=== PATIENT | female | born 1990 | race African-American/Black ===

== ENCOUNTER 2016-11-09 12:43 | Inpatient (IN) | payer BC ==
[~2016-11-09] VITALS: Ht 162.6 cm; Wt 74.5 kg
[2016-11-09] MEDS ORDERED: OXYTOCIN 30U/ 0.9% NaCL 500ML 500 ML IV ONE (12:46)
[2016-11-09] MEDS ORDERED: D5%-LACTATED RINGERS 1,000 ML IV SCH (12:46)
[2016-11-09] MEDS ORDERED: LACTATED RINGERS 1,000 ML IV SCH (12:46)
[2016-11-09] MEDS ORDERED: METOCLOPRAMIDE 5 MG/ML, 2ML IVPush PRN (13:00)
[2016-11-09] MEDS ORDERED: ONDANSETRON 2MG/ML, 2ML IVPush PRN (13:00)
[2016-11-09] MEDS ORDERED: SODIUM CITRATE/CITRIC ACID 30 ML UDC PO PRN (13:00)
[2016-11-09] MEDS ORDERED: FENTANYL PF 100 MCG/2ML IV PRN (13:00)
[2016-11-09] MEDS ORDERED: FENTANYL PF 100 MCG/2ML IVPush PRN (13:00)
[2016-11-09] MEDS ORDERED: OXYTOCIN 30U/ 0.9% NaCL 500ML 500 ML ONE (13:36)
[2016-11-09 13:39] LABS: ASPARTATE AMINO TRANSFERASE 37 U/L (15-37); BLOOD UREA NITROGEN 13 mg/dL (7-18)
[2016-11-09] MEDS ORDERED: METOCLOPRAMIDE 5 MG/ML, 2ML ONE ×2 (14:53→15:13)
[2016-11-09] MEDS ORDERED: SODIUM CITRATE/CITRIC ACID 30 ML UDC ONE (14:53)
[2016-11-09] MEDS ORDERED: FENTANYL PF 100 MCG/2ML ONE (14:56)
[2016-11-09] MEDS ORDERED: NEWBORN KIT ONE (15:00)
[2016-11-09] MEDS ORDERED: TERBUTALINE 1 MG/ML, 1ML ONE (15:01)
[2016-11-09] MEDS ORDERED: OXYTOCIN 10 UNITS/ML, 1ML ONE (15:13)
[2016-11-09] MEDS ORDERED: DEXAMETHASONE 4 MG/ML, 1ML ONE (15:13)
[2016-11-09] MEDS ORDERED: ONDANSETRON 2MG/ML, 2ML ONE (15:13)
[2016-11-09] MEDS ORDERED: KETOROLAC 30 MG/1 ML ONE (15:13)
[2016-11-09] MEDS ORDERED: TERBUTALINE 1 MG/ML, 1ML SQ PRN (15:30)
[2016-11-09 16:56] VITALS: BP 98/48
[2016-11-09] MEDS ORDERED: DIPH,PERTUSS(ACELL),TET VAC/PF NC IM-VACC PRN (17:00)
[2016-11-09] MEDS ORDERED: BISACODYL 10 MG SUPP PR PRN (17:00)
[2016-11-09] MEDS ORDERED: IBUPROFEN 600 MG TABLET PO PRN (17:00)
[2016-11-09] MEDS ORDERED: MEASLES,MUMPS&RUBELLA VACC/PF 0.5 ML SQ-VACC PRN (17:00)
[2016-11-09] MEDS ORDERED: KETOROLAC 30 MG/1 ML IV SCH (17:00)
[2016-11-09] MEDS ORDERED: morphine SULFATE 10 MG/ML, 1ML IVPush PRN ×2 (17:00)
[2016-11-09] MEDS ORDERED: CARBOPROST TROMETHAMINE 250 MCG/ML, 1ML IM PRN (17:00)
[2016-11-09] MEDS ORDERED: CALCIUM CARBONATE 500 MG TAB.CHEW PO PRN (17:00)
[2016-11-09] MEDS ORDERED: MISOPROSTOL 200 MCG TABLET PR PRN (17:00)
[2016-11-09] MEDS ORDERED: GLYCERIN ADULT SUPP PR PRN (17:00)
[2016-11-09] MEDS ORDERED: ONDANSETRON 2MG/ML, 2ML IV PRN (17:00)
[2016-11-09] MEDS ORDERED: ACETAMINOPHEN 325 MG TABLET PO PRN (17:00)
[2016-11-09] MEDS ORDERED: SIMETHICONE 80 MG CHEW TAB PO PRN (17:00)
[2016-11-09] MEDS: LACTATED RINGERS 1,000 ML IV SCH (18:35)
[2016-11-09] MEDS: OXYTOCIN 30U/ 0.9% NaCL 500ML 500 ML IV SCH (18:35)
[2016-11-09 19:30] VITALS: BP 127/77
[2016-11-09 20:11] LABS: BLOOD UREA NITROGEN 14 mg/dL (7-18)
[2016-11-09 20:15] LABS: ASPARTATE AMINO TRANSFERASE 31 U/L (15-37)
[2016-11-09] MEDS: ACETAMINOPHEN 325 MG TABLET PO SCH ×2 (21:00→22:14)
[2016-11-10 00:01] VITALS: BP 127/79
[2016-11-10] MEDS: LACTATED RINGERS 1,000 ML IV SCH ×5 (00:46→12:46)
[2016-11-10] MEDS: OXYTOCIN 30U/ 0.9% NaCL 500ML 500 ML IV SCH ×2 (02:46→12:46)
[2016-11-10 04:00] VITALS: BP 131/83
[2016-11-10] MEDS ORDERED: ACETAMINOPHEN 325 MG TABLET PO PRN (04:00)
[2016-11-10] MEDS: OXYcodone IR 5MG TABLET PO PRN ×3 (04:06→22:50)
[2016-11-10 06:35] LABS: ASPARTATE AMINO TRANSFERASE 39 U/L (15-37); BLOOD UREA NITROGEN 19 mg/dL (7-18)
[2016-11-10 09:00] VITALS: BP 129/78
[2016-11-10] MEDS: PRENATAL VIT/IRON/FA 1 EACH TABLET PO SCH ×2 (09:00→23:36)
[2016-11-10 12:05] LABS: BLOOD UREA NITROGEN 18 mg/dL (7-18)
[2016-11-10 12:09] LABS: ASPARTATE AMINO TRANSFERASE 42 U/L (15-37)
[2016-11-10 12:12] LABS: DIFF TOTAL CELLS COUNTED 100 CELL DIFF
[2016-11-10 12:14] LABS: VERIFY COUNTS? YES
[2016-11-10] MEDS: ACETAMINOPHEN 325 MG TABLET PO SCH ×4 (13:18→23:36)
[2016-11-10] MEDS: DOCUSATE 100 MG CAPSULE PO PRN (19:59)
[2016-11-10 20:00] VITALS: BP 139/98
[2016-11-11] MEDS: ACETAMINOPHEN 325 MG TABLET PO SCH ×3 (02:56→14:46)
[2016-11-11] MEDS: OXYcodone IR 5MG TABLET PO PRN ×4 (05:50→19:44)
[2016-11-11 08:35] VITALS: BP 129/93
[2016-11-11] MEDS: PRENATAL VIT/IRON/FA 1 EACH TABLET PO SCH (09:53)
[2016-11-11] MEDS: DOCUSATE 100 MG CAPSULE PO PRN ×2 (09:53→19:44)
[2016-11-11 20:00] VITALS: BP 137/90
[2016-11-12] VITALS: BP 133/86
[2016-11-12] MEDS: IBUPROFEN 600 MG TABLET PO PRN ×4 (00:09→18:05)
[2016-11-12 07:20] VITALS: BP 134/93
[2016-11-12 11:38] LABS: ASPARTATE AMINO TRANSFERASE 56 U/L (15-37); BLOOD UREA NITROGEN 13 mg/dL (7-18)
[2016-11-12] MEDS ORDERED: OXYC5CAP4 PO (11:50)
[2016-11-12] MEDS ORDERED: DOCU-30 PO (11:52)
[2016-11-12] MEDS ORDERED: IBUP-1222 PO (11:53)
[2016-11-12 12:00] VITALS: BP 138/93
[2016-11-12 16:00] VITALS: BP 133/90
[2016-11-12] MEDS: ACETAMINOPHEN 325 MG TABLET PO SCH ×2 (16:00→22:00)
[2016-11-12 19:15] VITALS: BP 149/104
[2016-11-12 19:16] VITALS: BP 149/107
[2016-11-12] MEDS: DOCUSATE 100 MG CAPSULE PO PRN (21:25)
[2016-11-13 00:04] VITALS: BP 143/98
[2016-11-13] MEDS: IBUPROFEN 600 MG TABLET PO PRN ×4 (01:41→21:47)
[2016-11-13] MEDS: ACETAMINOPHEN 325 MG TABLET PO SCH ×4 (04:00→22:00)
[2016-11-13 06:28] LABS: ASPARTATE AMINO TRANSFERASE 60 U/L (15-37); BLOOD UREA NITROGEN 15 mg/dL (7-18)
[2016-11-13 06:33] VITALS: BP 143/100
[2016-11-13 08:00] VITALS: BP 133/98
[2016-11-13] MEDS: DOCUSATE 100 MG CAPSULE PO PRN (08:46)
[2016-11-13] MEDS: PRENATAL VIT/IRON/FA 1 EACH TABLET PO SCH (08:46)
[2016-11-13] MEDS: niFEDipine ER 30 MG TABLET.ER PO SCH ×2 (09:00→10:09)
[2016-11-13 13:00] VITALS: BP 129/89
[2016-11-13 16:35] LABS: ASPARTATE AMINO TRANSFERASE 61 U/L (15-37); BLOOD UREA NITROGEN 12 mg/dL (7-18)
[2016-11-13 17:00] VITALS: BP 132/87
[2016-11-13 20:31] VITALS: BP 145/101
[2016-11-14 00:40] VITALS: BP 131/89
[2016-11-14] MEDS: ACETAMINOPHEN 325 MG TABLET PO SCH (04:00)
[2016-11-14] MEDS: IBUPROFEN 600 MG TABLET PO PRN ×2 (04:07→10:24)
[2016-11-14 04:18] VITALS: BP 142/99
[2016-11-14 06:48] LABS: BLOOD UREA NITROGEN 13 mg/dL (7-18)
[2016-11-14 06:53] LABS: ASPARTATE AMINO TRANSFERASE 67 U/L (15-37)
[2016-11-14 08:00] VITALS: BP 142/103
[2016-11-14] MEDS: PRENATAL VIT/IRON/FA 1 EACH TABLET PO SCH (09:02)
[2016-11-14] MEDS: DOCUSATE 100 MG CAPSULE PO PRN (09:02)
[2016-11-14] MEDS: niFEDipine ER 30 MG TABLET.ER PO SCH (09:03)
== END 2016-11-14 12:13 | disposition home or self-care (01) | DRG 765 ==
LOC: LDOP 12:43 → LDIP 12:59 → 2NW 19:08
PROVIDERS: ADMIT Student in an Organized Health Care Education/Training Program; ATTEND Student in an Organized Health Care Education/Training Program
PROC: 10D00Z1 Extraction of Products of Conception, Low, Open Approach (ICD-10-PCS; principal; 2016-11-09)
PROC: 0T9B70Z Drainage of Bladder with Drainage Device, Via Natural or Artificial Opening (ICD-10-PCS; 2016-11-09)
DX: O76 Abnormality in fetal heart rate and rhythm complicating labor and delivery (principal); O98.32 Other infections with a predominantly sexual mode of transmission complicating childbirth; O72.0 Third-stage hemorrhage; O77.0 Labor and delivery complicated by meconium in amniotic fluid; O69.81X0 Labor and delivery complicated by cord around neck, without compression, not applicable or unspecified; O14.94 Unspecified pre-eclampsia, complicating childbirth; O99.284 Endocrine, nutritional and metabolic diseases complicating childbirth; A60.00 Herpesviral infection of urogenital system, unspecified; E86.0 Dehydration; Z37.0 Single live birth; Z91.040 Latex allergy status; Z23 Encounter for immunization
CPT/HCPCS: 36415; 76705; 80053; 81001; 82248; 82803; 84550; 85025; 86850; 86900; 90715; J1100; J1885; J2405; J3010; J2590; J2765; J3105; J7120

== ENCOUNTER 2020-06-12 04:06 | Emergency (ER) | payer BC, OTHER ==
[~2020-06-12] VITALS: Ht 162.6 cm; Wt 65.0 kg
[~2020-06-12 04:06] MED LIST: DOCU-131 PO; IBUP-1222 PO; OXYC5CAP2 PO
[2020-06-12] MEDS ORDERED: VALG450T4 PO (04:35)
[2020-06-12] MEDS ORDERED: KETOROLAC 30 MG/1 ML ONE (04:57)
[2020-06-12] MEDS ORDERED: METHOCARBAMOL 750 MG TABLET ONE (04:57)
[2020-06-12] MEDS ORDERED: KETOROLAC 30 MG/1 ML IM ONE (05:00)
[2020-06-12] MEDS ORDERED: METHOCARBAMOL 750 MG TABLET PO ONE (05:00)
--- NOTE | 2020-06-12 05:29 | NUR ---
PATIENT REPORTS DECREASED DISCOMFORT
[2020-06-12 06:10] VITALS: BP 122/67
== END 2020-06-12 06:14 | disposition home or self-care (01) ==
LOC: ED 05:31
DX: S29.012A Strain of muscle and tendon of back wall of thorax, initial encounter (principal); X58.XXXA Exposure to other specified factors, initial encounter; Y93.89 Activity, other specified; Y92.89 Other specified places as the place of occurrence of the external cause; Y99.8 Other external cause status
CPT/HCPCS: 96372; 99283; J1885